=== PATIENT | male | born 1980 | race American Indian/Alaskan Native ===

== ENCOUNTER 2017-08-22 12:24 | Emergency (ER) | payer SELFPAY ==
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
[2017-08-22 17:43] VITALS: BP 121/81
== END 2017-08-22 16:25 | disposition home or self-care (01) ==
LOC: ED 12:24
DX: B07.8 Other viral warts (principal); F17.210 Nicotine dependence, cigarettes, uncomplicated
CPT/HCPCS: 99282

== ENCOUNTER 2017-11-15 09:14 | Emergency (ER) | payer OTHER ==
[2017-11-15 09:26] VITALS: BP 140/86
[2017-11-15] MEDS ORDERED: ULTRAM PO ONE (11:14)
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
--- NOTE | 2017-11-15 12:06 | XRay Report ---
Unilateral left ribs with chest 2 views: Findings: No evidence of a fracture. Normal lung parenchyma. No pneumothorax or pleural effusion or consolidation. Impression: Essentially negative study.
== END 2017-11-15 12:48 | disposition home or self-care (01) ==
LOC: ED 09:14
DX: S05.11XA Contusion of eyeball and orbital tissues, right eye, initial encounter (principal); S20.212A Contusion of left front wall of thorax, initial encounter; F17.200 Nicotine dependence, unspecified, uncomplicated; F12.10 Cannabis abuse, uncomplicated; Y04.0XXA Assault by unarmed brawl or fight, initial encounter; Y93.89 Activity, other specified; Y99.8 Other external cause status; Y92.009 Unspecified place in unspecified non-institutional (private) residence as the place of occurrence of the external cause
CPT/HCPCS: 70450; 70486

== ENCOUNTER 2018-02-14 07:57 | Emergency (ER) | payer SELFPAY ==
[2018-02-14] MEDS ORDERED: TORADOL IM ONE (08:59)
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
[2018-02-14 10:00] VITALS: BP 135/85
== END 2018-02-14 10:00 | disposition home or self-care (01) ==
LOC: ED 07:57
DX: M62.838 Other muscle spasm (principal); M54.2 Cervicalgia; G89.29 Other chronic pain; F17.200 Nicotine dependence, unspecified, uncomplicated; F12.10 Cannabis abuse, uncomplicated
CPT/HCPCS: 96372; 99282; J1885